=== PATIENT | female | born 1955 | race Caucasian/White ===

== ENCOUNTER → 2021-12-26 11:01 | Outpatient (CLI) | payer MEDICARE, MEDICAID, SELFPAY ==
--- NOTE | 2021-12-26 | DI.RAD.S_ITS ---
PROCEDURE: FL JOINT INJECTION MEDIUM LT INDICATIONS: Primary osteoarthritis, left shoulder COMPARISON: None. TECHNIQUE: The indications, alternatives, benefits, risks, and complications of the procedure were explained to the patient. Written informed consent was obtained and placed in the chart. The patient was placed in an appropriate position on the fluoroscopy table, and a site was chosen for percutaneous access under fluoroscopic guidance. The site was prepped and draped in a sterile fashion. Local anesthetic was administered using a 1% lidocaine solution. A hypodermic or spinal needle was then used to access the symptomatic joint. Intra-articular location of the needle tip was confirmed by injecting a small amount of contrast, followed by steroid administration. The needle was then withdrawn, and a bandage applied to the puncture site. FINDINGS: Joint injected: Left shoulder Medications injected: 4 mL of 40 mg/mL Kenalog and 0.5% Ropivacaine mixture. Patient's pain before injection: 8 out of 10. Patient's pain after injection: 0 out of 10. Complications: None. IMPRESSION: Successful fluoroscopically guided administration of steroid and anaesthetic solution into the right shoulder joint. Dictated by: Adrienne Krause M.D. on 12/26/2021 at 12:10 Approved by: Adrienne Krause M.D. on 12/26/2021 at 12:12
== END ==
PROVIDERS: PCP Registered Nurse; Referring Provider Physician Assistant Surgical; Visit Provider Physician Assistant Surgical
DX: M19.012 Primary osteoarthritis, left shoulder (principal)
CPT/HCPCS: 20605; 76000

== ENCOUNTER 2022-09-13 10:07 | Outpatient (CLI) | payer MEDICARE, MEDICAID, SELFPAY ==
--- NOTE | 2022-09-13 10:11 | DI.RAD.S_ITS ---
PROCEDURE: PAIN L INTERLAMINAR/CAUDAL INJ INDICATIONS: LUMBAR RADICULOPATHY COMPARISON: [facility], CR, XR LUMBAR SPINE WITH FLEXION EXTENSION 5 VIEWS, 06/13/2022, 14:34. [facility], MR, MR LUMBAR SPINE WITHOUT CONTRAST, 08/10/2022, 14:27. FINDINGS: Fluoroscopic spot filming was performed to verify placement of a spinal needle at the L5-S1 level, as labeled on the films. Appropriate location of the needle tip was confirmed by injection of iodinated contrast. IMPRESSION: No significant intraprocedural abnormality. Dictated by: Saad Parra M.D. on 09/13/2022 at 11:22 Approved by: Saad Parra M.D. on 09/13/2022 at 11:22
--- NOTE | 2022-09-13 10:12 | P.PCN_ITS ---
Date/Time/Diagnoses Date of procedure: 09/13/22 Time of procedure: 11:00 Procedure Notes Physician: Chevy Paul Total Fluoroscopy time (seconds): 17 Total sedation minutes: 0 Procedure in detail & Post-procedure care: L5-S1 Interlaminar Epidural Steroid Injection Indications: Beatriz is presenting for treatment of lumbar radiculopathy with low back and leg pain. Preoperative diagnosis: Lumbar radiculopathy Postoperative diagnosis: Same Focused Examination: Ax3 Mood and affect are normal Vital Signs: VSS ASA: 2 Consent: Following review of allergies and potential side effects/complications, including, but not necessarily limited to, infection, allergic reaction, local tissue breakdown, stroke, temporary or permanent nerve injury, paralysis, and possible , the patient indicated that they understood and agreed to proc eed.? An informed consent document was signed by the patient, witnessed by a nurse and placed in the patient's chart.? Additionally, other treatment options including medications and physical therapy were reviewed with the patient. All questions were answered. Site was then marked. Anesthesia: local vs sedation Position: Prone Monitoring: NIBP, Pulse oximetry, 3 lead EKG Needle used: 18 G 3.5? Tuohy Contrast: Isovue 300M Injectate: Depo-Medrol 80 mg with 0.25% Bupivacaine 2 mL Technique: The skin was prepped with chloraprep and then draped in a sterile fashion. Time out was performed as per protocol. Oxygen applied via NC. Skin and subcutaneous structures of the needle entry site was then infiltrated with 3 mL of lidocaine 1%. Under AP, lateral and contralateral oblique fluoroscopic control, the Tuohy needle was guided into the L5-S1 epidural space. The space was accessed with loss of resistance technique. Isovue 300M was then injected and the spread was consistent with the epidural space. There was no evidence for intravascular or intrathecal uptake. Test test was performed with 2 cc 1% lidocaine. Leg strength was maintained after test dose. After negative aspiration, the above-mentioned injectate was then slowly administered and the needle withdrawn. The patient expressed no unusual discomfort or paresthesias during the injection. Band-Aids applied to injection sites. EBL: less than 1 ml Complications: None Post Procedure: Patient was taken to the recovery and monitored. The patient was provided a Pain Log to continue to record the patient's response to the target- specific procedure prior to the patient's follow-up visit with the referring physician. Patient was stable upon discharge. Detailed post procedure instructions were provided. Patient was asked to call in the event of worsening pain, fever, weakness, numbness or bladder or bowel incontinence.
[2022-09-13 10:22] VITALS: BP 133/66; PULSE 92; RESP 22; TEMP 36.1; O2SAT 98
[2022-09-13 10:35] VITALS: BP 141/89; PULSE 95; RESP 20; O2SAT 96
[2022-09-13 10:40] VITALS: BP 142/73; PULSE 88; RESP 18; O2SAT 95
[2022-09-13] MEDS: BUPIVACAINE 0.25% (PF) VIAL 2 ML INJ (10:40)
[2022-09-13] MEDS: IOPAMIDOL 15 ML VIAL 3 ML INJ (10:40)
[2022-09-13] MEDS: methylPREDNISolone acetate 80 MG/ML VIAL INJ (10:41)
[2022-09-13 10:45] VITALS: BP 150/63; PULSE 87; RESP 20; O2SAT 95
[2022-09-13 10:53] VITALS: BP 150/65; PULSE 86; RESP 18; O2SAT 96
== END 2022-09-13 10:59 | disposition home or self-care (01) ==
LOC: RAD 10:10
PROVIDERS: PCP Registered Nurse; Referring Provider Anesthesiology; Visit Provider Anesthesiology
DX: M54.16 Radiculopathy, lumbar region (principal)
CPT/HCPCS: 62323; J1040; J3490

== ENCOUNTER 2022-10-24 09:30 | Outpatient (CLI) | payer MEDICARE, MEDICAID, SELFPAY ==
--- NOTE | 2022-10-24 09:31 | DI.RAD.S_ITS ---
PROCEDURE: PAIN L INTERLAMINAR/CAUDAL INJ INDICATIONS: L4-5 ILESI COMPARISON: [facility], , PAIN L INTERLAMINAR/CAUDAL INJ, 09/13/2022, 10:39. FINDINGS: Fluoroscopic spot filming was performed to verify placement of a spinal needle at the L4-L5 level, as labeled on the films. Appropriate location of the needle tip was confirmed by injection of iodinated contrast. IMPRESSION: Intraprocedural examination within normal limits. Dictated by: Saad Parra M.D. on 10/24/2022 at 12:17 Approved by: Saad Parra M.D. on 10/24/2022 at 12:17
[2022-10-24 09:42] VITALS: BP 146/68; PULSE 90; RESP 16; TEMP 36.1; O2SAT 97
[2022-10-24 10:18] VITALS: BP 167/78; PULSE 92; RESP 14; O2SAT 99
[2022-10-24] MEDS: DEXAMETHASONE 10 MG/ML VIAL 20 MG INJ (10:20)
[2022-10-24] MEDS: BUPIVACAINE 0.25% (PF) VIAL 2 ML INJ (10:21)
[2022-10-24] MEDS: IOPAMIDOL 15 ML VIAL 3 ML INJ (10:21)
[2022-10-24 10:23] VITALS: BP 160/69; PULSE 86; RESP 16; O2SAT 97
[2022-10-24 10:31] VITALS: BP 137/65; PULSE 90; RESP 18; O2SAT 96
--- NOTE | 2022-10-24 11:50 | P.PCN_ITS ---
Date/Time/Diagnoses Date of procedure: 10/24/22 Time of procedure: 11:50 Procedure Notes Physician: Chevy Paul Total Fluoroscopy time (seconds): 13 Total sedation minutes: 0 Procedure in detail & Post-procedure care: L4-5 Interlaminar Epidural Steroid Injection Indications: Beatriz is presenting for treatment of lumbar radiculopathy with low back and leg pain. Preoperative diagnosis: Lumbar radiculopathy Postoperative diagnosis: Same Focused Examination: Ax3 Mood and affect are normal Vital Signs: VSS Consent: Following review of allergies and potential side effects/complications, including, but not necessarily limited to, infection, allergic reaction, local tissue breakdown, stroke, temporary or permanent nerve injury, paralysis, and possible , the patient indicated that they understood and agreed to proceed.? An informed consent document was signed by the patient, witnessed by a nurse and placed in the patient's chart.? Additionally, other treatment options including medications and physical therapy were reviewed with the patient. All questions were answered. Site was then marked. Anesthesia: Local Position: Prone Monitoring: NIBP, Pulse oximetry, 3 lead EKG Needle used: 18 G 3.5? Tuohy Contrast: Isovue 300M Injectate: Dexamethasone 15 mg with 0.25% Bupivacaine 1.5 mL Technique: The skin was prepped with chloraprep and then draped in a sterile fashion. Time out was performed as per protocol. Oxygen applied via NC. Skin and subcutaneous structures of the needle entry site was then infiltrated with 3 mL of lidocaine 1%. Under AP, lateral and contralateral oblique fluoroscopic control, the Tuohy needle was guided into the L4-5 epidural space. The space was accessed with loss of resistance technique. Isovue 300M was then injected and the spread was consistent with the epidural space. There was no evidence for intravascular or intrathecal uptake. After negative aspiration, the above- mentioned injectate was then slowly administered and the needle withdrawn. The patient expressed no unusual discomfort or paresthesias during the injection. Band-Aids applied to injection sites. EBL: less than 1 ml Complications: None Post Procedure: Patient was taken to the recovery and monitored. The patient was provided a Pain Log to continue to record the patient's response to the target- specific procedure prior to the patient's follow-up visit with the referring physician. Patient was stable upon discharge. Detailed post procedure instructions were provided. Patient was asked to call in the event of worsening pain, fever, weakness, numbness or bladder or bowel incontinence.
== END 2022-10-24 10:34 | disposition home or self-care (01) ==
PROVIDERS: PCP Registered Nurse; Referring Provider Anesthesiology; Visit Provider Anesthesiology
DX: M54.16 Radiculopathy, lumbar region (principal)
CPT/HCPCS: 62323; J1100; J3490

== ENCOUNTER → 2023-04-24 11:23 | Outpatient (CLI) | payer MEDICARE, MEDICAID, SELFPAY ==
--- NOTE | 2023-04-24 | DI.RAD.S_ITS ---
PROCEDURE: FL JOINT INJECTION MEDIUM LT INDICATIONS: Primary osteoarthritis, left shoulder COMPARISON: [facility], FL JOINT INJECTION MEDIUM LT, 12/26/2021, 11:35. TECHNIQUE: The indications, alternatives, benefits, risks, and complications of the procedure were explained to the patient. Written informed consent was obtained and placed in the chart. The patient was placed in an appropriate position on the fluoroscopy table, and a site was chosen for percutaneous access under fluoroscopic guidance. The site was prepped and draped in a sterile fashion. Local anesthetic was administered using a 1% lidocaine solution. A hypodermic or spinal needle was then used to access the symptomatic joint. Intra-articular location of the needle tip was confirmed by injecting a small amount of contrast, followed by steroid administration. The needle was then withdrawn, and a bandage applied to the puncture site. FINDINGS: Joint injected: Left shoulder Medications injected: 4 mL of 40 mg/mL Kenalog and 0.5% Ropivacaine mixture. Patient's pain before injection: 8 out of 10. Patient's pain after injection: 2 out of 10. Complications: Left shoulder injection 12/26/2021. IMPRESSION: Successful fluoroscopically guided administration of steroid and anaesthetic solution into the left shoulder joint. Dictated by: Noah Hobbs M.D. on 04/24/2023 at 13:01 Approved by: Noah Hobbs M.D. on 04/24/2023 at 13:04
[2023-04-24] MEDS: LIDOCAINE 1% 20 ML INJ (12:25)
[2023-04-24] MEDS: ROPIVACAINE 0.5% PF 5 MG/ML 20ML VIAL 3 ML INJ (12:25)
[2023-04-24] MEDS: TRIAMCINOLONE 40 MG/ML VIAL INTRA-ARTI (12:25)
== END ==
PROVIDERS: PCP Registered Nurse; Referring Provider Physician Assistant Surgical; Visit Provider Physician Assistant Surgical
DX: M19.012 Primary osteoarthritis, left shoulder (principal)
CPT/HCPCS: 20605; 77002